=== PATIENT | male | born 1960 | race Two or more races ===

== ENCOUNTER 2019-05-15 05:02 | Emergency (ER) | payer OTHER ==
[~2019-05-15] VITALS: Ht 172.7 cm; Wt 77.1 kg
--- NOTE | 2019-05-15 05:10 | NUR ---
PT AMBULATORY FR HOME C/O DRY COUGH 4-5DAYS AOX3, ABLE TO SPEAK CLEAR AND COMPLETE SENTENCES DENIES RECENT TRAVELS DENIES SOB/NVD/CHILLS/JOINT PAIN REPORTS HAD THE SAME SYMPTOMS INITIALLY [id number] 99% NO WHEEZING, NO CRACKLES ON BOTH LUNG BAKER MONITORED ACCORDINGLY
[2019-05-15 05:26] VITALS: BP 147/65
--- NOTE | 2019-05-15 05:26 | NUR ---
Patient discharged to home in stable conditon. Written and verbal after care instructions given. Patient verbalizes understanding of instructions. AMBULATORY W/ STABLE GAIT ALL BELONGINGS W/ PT
== END 2019-05-15 05:27 | disposition home or self-care (01) ==
LOC: ER 05:03
DX: J06.9 Acute upper respiratory infection, unspecified (principal); F17.200 Nicotine dependence, unspecified, uncomplicated
CPT/HCPCS: A4663

== ENCOUNTER 2019-05-21 19:32 | Emergency (ER) | END 2019-05-21 20:55 | disposition left against medical advice (07) | DX: Z53.21 Procedure and treatment not carried out due to patient leaving prior to being seen by health care provider (principal) ==

== ENCOUNTER 2021-12-28 11:30 | Emergency (ER) | payer OTHER ==
[~2021-12-28] VITALS: Ht 175.3 cm; Wt 69.4 kg
--- NOTE | 2021-12-28 11:46 | NUR ---
at bedside for evaluation.
[2021-12-28] MEDS ORDERED: HYDROCODONE/APAP 5-325MG TABLET ONE (11:51)
[2021-12-28] MEDS ORDERED: HYDROCODONE/APAP 5-325MG TABLET PO ONE (12:00)
[2021-12-28] MEDS ORDERED: NEOMY/BACITRA/POLYMYXIN B OINT UD PACKET TP ONE ×2 (12:08→12:15)
[2021-12-28 12:17] VITALS: BP 132/79
--- NOTE | 2021-12-28 12:17 | NUR ---
Patient discharged to home in stable condition. Written and verbal after care instructions given. Patient verbalizes understanding of instructions. Stressed follow up or return to ER for worsening s/s.
== END 2021-12-28 12:18 | disposition home or self-care (01) ==
LOC: ER 11:33
DX: S50.12XA Contusion of left forearm, initial encounter (principal); Y00.XXXA Assault by blunt object, initial encounter; Y92.89 Other specified places as the place of occurrence of the external cause; S50.812A Abrasion of left forearm, initial encounter
CPT/HCPCS: 73090; A4663